=== PATIENT | female | born 1980 | race Caucasian/White ===

== ENCOUNTER 2017-07-07 22:10 | Emergency (ER) | payer MEDICAID ==
[~2017-07-07] VITALS: Ht 165.1 cm; Wt 133.8 kg
--- NOTE | 2017-07-07 22:14 | ER Report ---
History and Physical Time Seen By MD: 22:13 HPI/ROS CHIEF COMPLAINT: Back pain HISTORY OF PRESENT ILLNESS: 30 [id number] female who presents to the ER complaining of back pain. Patient states she is on long-term opiate management by her primary care physician. She left [address] heading to [place] for in the family. She presents here to the ER requesting a refill of her pain medicine is not she left at home. [place]. Prescription drug monitoring website was accessed. There is an entry from 06/26/17 for #90 Vicodin that were prescribed to the patient. Patient states she has a history of spinal stenosis. Patient notes no incontinence. She denies dysuria, frequency or hematuria. She denies fever or chills. REVIEW OF SYSTEMS: Respiratory: No cough, no dyspnea. Cardiovascular: No chest pain, no palpitations. Gastrointestinal: No vomiting, no abdominal pain. Musculoskeletal: No back pain. Allergies: Coded Allergies: Sulfa (Sulfonamide Antibiotics) (Verified Adverse Reaction, Severe, RASH, 07/07/17) metoclopramide (Verified Adverse Reaction, Severe, ANXIETY, 07/07/17) Uncoded Allergies: PENICILLIN (Adverse Reaction, Severe, RASH, 07/07/17) Home Meds Reported Medications Sertraline Hcl (ZOLOFT) 100 Mg Tablet, 1 TAB PO QDAY, TAB 07/07/17 Hydrocodone Bit/Acetaminophen (HYDROCODON-ACETAMINOPHEN 5-325) 1 Each Tablet, 1 EACH PO TID, TAB 07/07/17 Rivaroxaban 20 Mg (XARELTO 20 MG) 20 Mg Tablet, 20 MG PO DAILY, TAB 07/07/17 Reviewed Nurses Notes: Yes Old Medical Records Reviewed: Yes Constitutional Vital Sign - Last 24 Hours 07/07/17 07/07/17 22:15 22:59 Temp 98.2 Pulse 60 66 Resp 20 B/P (MAP) 139/76 Pulse Ox 96 97 O2 Delivery Room Air Physical Exam General Appearance: The patient is alert, has no immediate need for airway protection and no current signs of toxicity. Vital signs stable, afebrile Eyes: Pupils equal and round no injection. Respiratory: Chest is non tender, lungs are clear to auscultation. Cardiac: regular rate and rhythm Gastrointestinal: Abdomen is soft and non tender, no masses, bowel sounds normal. Musculoskeletal: Neck: Neck is supple and non tender. Back: There is tenderness in the midline and the paraspinous muscles. Negative straight leg raise bilaterally. Lower extremities are neurovascularly intact Extremities have full range of motion and are non tender. No edema, no calf tenderness Skin: No rashes or lesions. DIFFERENTIAL DIAGNOSIS: After history and physical exam differential diagnosis was considered for back pain including but not limited to muscular pain, herniated disc, spine fracture, intra-abdominal causes and urinary tract infection. Medical Decision Making ED Course/Re-evaluation ED Course Patient was admitted to an examination room. H&P was done. The differential diagnoses was considered. On clinical examination. Patient has back pain. There are no clinical findings. Except for back pain. Patient is indeed prescribed opiate pain relievers noted on the [facility] Prescription drug monitoring website. Patient's given 2 Lortab to treat her pain through the night. She is advised to return home to get her medication before heading to [place]. Decision to Disposition Date: Jul 07, 2017 Decision to Disposition Time: 22:34 Depart Departure Latest Vital Signs Vital Signs Date Time Temp Pulse Resp B/P (MAP) Pulse Ox O2 Delivery O2 Flow Rate FiO2 07/07/17 22:59 66 97 Room Air 07/07/17 22:15 98.2 20 139/76 Impression: Primary Impression: Chronic back pain Additional Impression: Degenerative disc disease Condition: Improved Disposition: HOME OR SELF-CARE Patient Instructions: Chronic Back Pain (ED) Additional Instructions: I would recommend returning to home to get your pain medication before continuing on your journey Problem Qualifiers Primary Impression: Chronic back pain Back pain location: low back pain Back pain laterality: midline Sciatica presence: without sciatica Qualified Codes: M54.5 - Low back pain; G89.29 - Other chronic pain Additional Impression: Degenerative disc disease Spinal region: lumbar Qualified Codes: M51.36 - Other intervertebral disc degeneration, lumbar region NIKKI DURAN DO Jul 07, 2017 22:14
[2017-07-07 22:15] VITALS: BP 139/76
[2017-07-07] MEDS ORDERED: RIVA20TA PO (22:29)
[2017-07-07] MEDS ORDERED: SERT-173 PO (22:29)
[2017-07-07] MEDS ORDERED: HYDR-385 PO (22:29)
[2017-07-07] MEDS ORDERED: ACET/HYDROC 5/325MG TH ER ONLY 2 TAB/BOTTLE PO ONE (22:35)
== END 2017-07-07 23:01 | disposition home or self-care (01) ==
LOC: ER 22:25
DX: M54.5 Low back pain (principal); G89.29 Other chronic pain; M51.36 Other intervertebral disc degeneration, lumbar region
CPT/HCPCS: 99282